=== PATIENT | male | born 1980 | race Caucasian/White ===

== ENCOUNTER → 2016-10-25 | Outpatient (CLI) | payer OTHER ==
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
== END ==
LOC: M RAD 10:25
PROVIDERS: ATTEND Physician Assistant Medical
DX: Z04.3 Encounter for examination and observation following other accident (principal)